=== PATIENT | female | born 2000 | race Two or more races ===

== ENCOUNTER 2020-01-29 18:40 | Emergency (ER) | payer OTHER ==
[~2020-01-29] VITALS: Ht 154.9 cm; Wt 59.0 kg
--- NOTE | 2020-01-29 18:40 | NUR ---
ED Nurse Note: Patient walked in to ER c/o flu like symptoms, AAO x4, VSS at this time. Stated was exposed to virus.
[2020-01-29 18:50] VITALS: BP 135/87
--- NOTE | 2020-01-29 18:52 | Emergency Room Report ---
History of Present Illness General Chief Complaint: To Be Triaged Source: Patient Present Illness HPI 19-year-old female with no segment past nuchal history who appears to be afebrile here with sore throat and congestion x2 days. 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 Appears to be stable with stable vital signs. Denies any chest pain shortness of breath at this time. Denies any recent travel. Denies at this time. Patient was placed in the tent COVID-19 risk:Travel to affect: Yes Has patient experienced figueroa: Yes Coronavirus symptoms experienc: Fever (T>100.4F or >38C), Cough Allergies: Coded Allergies: No Known Allergies (Unverified , 01/29/20) Patient History Past Medical History: see triage record Past Surgical History: none Pertinent Family History: none Last Menstrual Period: 01/18/2020 Now: No Immunizations: UTD Reviewed Nursing Documentation: PMH: Agreed; PSxH: Agreed Nursing Documentation-PMH Past Medical History: No Stated History Review of Systems All Other Systems: negative except mentioned in HPI Physical Exam Vital Signs Date Time Temp Pulse Resp B/P (MAP) Pulse Ox O2 Delivery O2 Flow Rate FiO2 01/29/20 18:13 98.6 111 20 135/87 (103) 98 Room Air Sp02 EP Interpretation: reviewed, normal General Appearance: no apparent distress, alert, GCS 15, non-toxic Head: normocephalic, atraumatic Eyes: bilateral eye normal inspection, bilateral eye PERRL ENT: hearing grossly normal, normal pharynx, no angioedema, normal voice Neck: full range of motion, supple, thyroid normal, no meningismus, no bony tend, supple/symm/no masses Respiratory: chest non-tender, lungs clear, normal breath sounds, no rhonchi, no retraction, speaking full sentences Cardiovascular #1: regular rate, rhythm, no edema, no murmur Gastrointestinal: normal bowel sounds, non tender, soft, non-distended, no guarding, no rebound Rectal: deferred Genitourinary: no CVA tenderness Musculoskeletal: back normal, normal range of motion, gait/station normal, non- tender Neurologic: alert, motor strength/tone normal, oriented x3, sensory intact, responsive, speech normal Psychiatric: judgement/insight normal, memory normal, mood/affect normal, no suicidal/homicidal ideation Skin: no rash Lymphatic: no adenopathy Medical Decision Making PA Attestation All my diagnosis and treatment plans were reviewed ad discussed with my supervising physician Dr. Cantu Diagnostic Impression: Primary Impression: Exposure to SARS-associated coronavirus ER Course 19-year-old female with no segment past nuchal history who appears to be afebrile here with sore throat and congestion x2 days. 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 Appears to be stable with stable vital signs. Denies any chest pain shortness of breath at this time. Denies any recent travel. Denies at this time. Patient was placed in the tent Ddx considered but are not limited to: Coronavirus ,strep pharyngitis, URI, tonsillitis, peritonsillar abscess, influneza Vital signs: are WNL, pt. is afebrile H&PE are most consistent with: Exposure to coronavirus ORDERS: Covid 19, rapid influenza test, guaifenesin ED INTERVENTIONS: None required at this time. DISCHARGE: At this time pt. is stable for d/c to home. Will provide printed patient care instructions, and any necessary prescriptions. Care plan and follow up instructions have been discussed with the patient prior to discharge. Take medication as directed, follow-up with your primary doctor, you need to stay home for self quarantine due to Covid 19 precautions for 14 days Last Vital Signs Date Time Temp Pulse Resp B/P (MAP) Pulse Ox O2 Delivery O2 Flow Rate FiO2 01/29/20 18:13 98.6 111 20 135/87 (103) 98 Room Air Disposition: HOME, SELF-CARE Condition: Stable Scripts Guaifenesin* (GUAIFENESIN*) 100 Mg/5 Ml Liquid 15 ML ORAL Q8H, #120 ML 0 Refills Prov: Efrem Ojeda 01/29/20 Patient Instructions: Upper Respiratory Infection, Adult, [id number] Additional Instructions: Take medication as directed, stay home and Claritin also for the next 15 days, avoid big community of people, follow-up with your primary care provider, increase oral hydration Efrem Ojeda Jan 29, 2020 18:52
[2020-01-29] MEDS ORDERED: GUAIFENESI100 MG/5 M ORAL (19:05)
[2020-01-29 19:40] VITALS: BP 135/87
--- NOTE | 2020-01-29 19:40 | NUR ---
ED Nurse Note: Pt cleared by health care Provider for discharge. DC instructions/prescription was given and explained to pt and verbalized understanding of teachings. All medical deviecs such as ID band removed. Pt is AAO x4, ambulatory and left with all personal belongings.
== END 2020-01-29 19:40 | disposition home or self-care (01) ==
LOC: EDBD 18:40 → EMR 18:50
DX: R07.0 Pain in throat (principal); Z20.828 Contact with and (suspected) exposure to other viral communicable diseases
CPT/HCPCS: 86710; Z7502; 99283